=== PATIENT | male | born 1995 | race Two or more races ===

== ENCOUNTER 2018-06-20 13:04 | Emergency (ER) | payer BC, OTHER ==
[~2018-06-20] VITALS: Ht 175.3 cm; Wt 90.7 kg
[2018-06-20 13:25] VITALS: BP 141/72
[2018-06-20] MEDS ORDERED: ONDANSETRON ODT 4 MG TAB.RAPDIS. PO ONE (13:45)
--- NOTE | 2018-06-20 13:50 | PHYS DOC ---
Past Medical History Past Medical History: No Pertinent History Past Surgical History: No Surgical History Alcohol Use: None Drug Use: None Adult General Chief Complaint Chief Complaint: FLU SYMPTOM HPI HPI Patient is a 22 year old male who presents with diffuse upper abd pain, nausea and vomiting, sore throat, congestion and body aches. He feels the abd pain has improved today but the body aches and sore throat are worse. Review of Systems Review of Systems Constitutional: Reports chills HEENT: Sore throat, congestion, ear fullness. Respiratory: Denies cough or shortness of breath Cardiovascular: Denies chest pain GI: Denies diarrhea or constipation. Reports abdominal pain and nausea and vomiting. Musculoskeletal: Denies back pain or joint pain. Reports myalgia. Integument: Denies rash or skin lesions Neurologic: Denies headache, focal weakness or sensory changes All other systems were reviewed and found to be within normal limits, except as documented in this note. Current Medications Current Medications Current Medications Medications (Trade) Dose Ordered Sig/Aidan Start Time Stop Time Status Last Admin Dose Admin Ondansetron HCl (Zofran Odt) 4 mg 1X ONCE 06/20/18 13:45 06/20/18 13:46 DC 06/20/18 13:45 4 MG Allergies Allergies Allergies Coded Allergies Type Severity Reaction Last Updated Verified No Known Drug Allergies 10/21/14 No Physical Exam Physical Exam Constitutional: Well developed, well nourished, no acute distress, non-toxic appearance. HENT: Normocephalic, atraumatic, bilateral external ears normal. Oropharynx erythematous, L TM erythematous, tender exam, L maxillary sinus pressure. Neck: Normal range of motion, no tenderness, supple, no stridor. No meningismus Cardiovascular:Heart rate regular rhythm, no murmur Lungs & Thorax: Bilateral breath sounds clear to auscultation Abdomen: Bowel sounds normal, soft, no masses, no pulsatile masses. Mild epigastric tenderness Skin: Warm, dry, no erythema, no rash. Back: No tenderness, no CVA tenderness. Extremities: No tenderness, no cyanosis, no clubbing, ROM intact, no edema. Neurologic: Alert and oriented X 3, normal motor function, normal sensory function, no focal deficits noted. Psychologic: Affect normal, judgement normal, mood normal. Current Patient Data Vital Signs Vital Signs Date Time Temp Pulse Resp B/P (MAP) Pulse Ox O2 Delivery O2 Flow Rate FiO2 06/20/18 13:25 97.8 90 20 141/72 (95) 97 Room Air 97.8 Lab Values Laboratory Tests Test 06/20/18 13:28 Influenza Type A Antigen Negative (NEGATIVE) Influenza Type B Antigen Negative (NEGATIVE) Group A Streptococcus Rapid Negative (NEGATIVE) EKG EKG [] Radiology/Procedures Radiology/Procedures [] Course & Med Decision Making Course & Med Decision Making Pertinent Labs and Imaging studies reviewed. (See chart for details) Influenza swab and strep swab negative. Discussed that this is most likely a viral illness, but will cover with azithromycin due to his otitis and sinus pressure and recommend close f/u with PCP. Pt to return if symptoms worsen at anytime. Dragon Disclaimer Dragon Disclaimer This electronic medical record was generated, in whole or in part, using a voice recognition dictation system. Departure Departure Impression: Primary Impression: Pharyngitis Additional Impressions: Vomiting Myalgia Disposition: HOME, SELF-CARE Condition: IMPROVED Referrals: NO PCP (PCP) TAMARA MORGAN MD Patient Instructions: Nausea and Vomiting, [id number], Viral and Bacterial Pharyngitis, [id number] Additional Instructions: Rest, bland diet and push fluids. Scripts Azithromycin (AZITHROMYCIN TABLET) 250 Mg Tablet 1 PKG PO UD, #6 TAB Prov: JEFFREY MIMS 06/20/18 Ondansetron (ZOFRAN ODT) 4 Mg Tab.rapdis 1 TAB SL Q8HRS, #10 TAB Prov: JEFFREY MIMS 06/20/18 Azithromycin (AZITHROMYCIN PACKET) 1 Gm Packet 1 PACKET PO ONCE, #1 PACKET Prov: JEFFREY MIMS 06/20/18 Problem Qualifiers JEFFREY MIMS Jun 20, 2018 13:50
[2018-06-20 14:06] LABS: INFLUENZA A PATIENT NEGATIVE (NEGATIVE); INFLUENZA B PATIENT NEGATIVE (NEGATIVE)
[2018-06-20] MEDS ORDERED: ONDA4TAB10 SL (14:11)
[2018-06-20] MEDS ORDERED: AZIT1PAC9 PO (14:11)
[2018-06-20] MEDS ORDERED: AZIT250T6 PO (14:17)
== END 2018-06-20 14:22 | disposition home or self-care (01) ==
LOC: ER 13:04
DX: J02.9 Acute pharyngitis, unspecified (principal); R11.2 Nausea with vomiting, unspecified; R10.13 Epigastric pain; M79.1 Myalgia
CPT/HCPCS: 87804; 87880; 99284; Q0162